=== PATIENT | female | born 1965 | race Caucasian/White ===

== ENCOUNTER 2025-01-26 21:36 | Emergency (ER) | payer SELFPAY ==
--- OUTSIDE RECORDS SUMMARY | 2025-01-26 21:39 | XMS REPORT | Continuity of Care Document ---
Author Name Unknown Address [address] [facility]. [address] [place] [address] [facility] Address [address] [facility] [address] [place] [address] Care Team Providers Care American Board Certified Orthotist Name Role Phone Pcp, Patient Does Not Have A Primary Care Physic joy No, PCP Attending Clinician Unavailable MYRIAM VAUGHN Attending Clinician Unavailable MYRIAM VAUGHN Attending Clinician Unavailable LISHA COOK Attending Clinician Unavailable Lisha Cook DNP Attending Clinician [phone] Myriam Vaughn MD Attending Clinician [phone] SWETHA EDWARDS Attending Clinician Unavailable Doctor Unassigned, [place] Attending Clinician U navailable Swetha Ibarra Attending Clinician [phone], [facility] Attending Clinician Unavailable Nancy Stephenson MA Attending Clinician Unava ilable GREGOR Attending Clinician Unavailable Mike Mayes Attending Clinician [phone] FELECIA CHAMBERS Attending Clinician Unavailable Nurse, [facility] Attending Clinician Un available Felecia Chambers MD Attending Clinician [phone] Rocio Attending Clinician Unavailable Uche Santiago RN Attending Clinician UnavailLENY Sanchez Attending Clinician Unavailable Green CUSHION BUILDER, Leny Attending Clinician [phone] Alek Milligan MD Attending Clinician [phone] Lab, Ang - Db Attending Clinician Unavailable ALEK MILLIGAN Attending Clinician Unavaila ble Pob, [facility] Main Attending Clinician Unavailabl e Lab, [facility] Fam Pob I Attending Clinician Unavailab sharon Amanuel Robert GARNER Attending Clinician MYRIAM VAUGHN Admitting Clinician Unavailable GREGOR Admitting Clinician Unavailable Rocio Admitting Clinician Unavailable Payers Payer Name Policy Type Policy Number Effective Date Expirati on Date Source [place] [id number] 2020 00:00:00 [employer] TRS CARE [id number] 2019 00:00:00 2021 00:00:00 Problems Condition Name Condition Details Condition Category Status Onset Date Resolution Date Last Treatment Date Treating Clinician Comments Source New onset of headaches New onset of headaches Disease Active 9-16 00:00: 00 [facility] Microscopi c hematuria Microscopi c hematuria Disease Active 8-11 00:00: 00 [facility] Hyperchole sterolemia Hyperchole sterolemia Disease Active 8-11 00:00: 00 [facility] H/O partial thyroidect abel H/O partial thyroidect abel Disease Active 8-03 00:00: 00 Overview: Formattin g of this note might be different from the original. 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 Disease Active [facility] Adenomatou s polyp of colon Adenomatou s polyp of colon Disease Active [facility] Postmenopa usal bleeding Postmenopa usal bleeding Disease Resolve d 7-24 00:00: 00 2023-04-22 00:00:00 2023-04-22 09:14:47 [facility] Allergies, Adverse Reactions, Alerts Allergy Name Allergy Type Status Severity Reaction(s) Onset Date Inactive Date Treating Clinician Comments Source NO KNOWN ALLERGIE S Drug Class Active [facility] Social History Social Habit Start Date Stop Date Quantity Comments Source [facility] of Social function 2024-07-30 00:00:00 2024-07-30 00:00:00 [facility] Alcoholic beverage intake 2024-07-30 00:00:00 2024-07-30 00:00:00 Ex-drinker (finding) [facility] Tobacco use and exposure 2023-04-22 00:00:00 2023-04-22 00:00:00 Smokeless tobacco non-user [facility] Exposure to SARS-CoV-2 (event) 2023-04-10 00:00:00 2023-04-20 13:10:00 Not sure [facility] Alcohol intake 2021-04-08 00:00:00 2021-04-08 00:00:00 Ex-drinker (finding) [facility] Sex assigned at 1965 00:00:00 1965 00:00:00 [facility] Smoking Status Start Date Stop Date Source Never smoked tobacco [facility] Medications Ordered Medication Name Filled Medication Name Start Date Stop Date Current Medication? Ordering Clinician Indication Dosage Frequency Signature (SIG) Comments Components Source nystatin-tr iamcinolone cream 2023-10 2- 00:00: 00 Yes Apply to area(s) 2 (two) times daily. [facility] THYROID ORAL 2023-10 0-14 09:07: 24 Yes Take by mouth. [facility] MULTIVITAMI N ORAL 04-22 08:52: 31 Yes Take by mouth. [facility] B12 1ml IM Q week B12 1ml IM Q week 05-11 00:00: 00 No B12 1ml IM Q week [facility] B12 1ml IM Q week B12 1ml IM Q week 05-11 00:00: 00 No B12 1ml IM Q week [facility] B12 1ml IM Q week B12 1ml IM Q week 05-11 00:00: 00 No B12 1ml IM Q week [facility] B12 1ml IM Q week B12 1ml IM Q week 05-11 00:00: 00 No B12 1ml IM Q week [facility] MULTIVITAMI N ORAL 04-13 10:06: 00 Yes Take by mouth. [facility] Nitrofurant oin&Nit. Macrocryst 100 mg capsule 04-13 00:00: 00 04-22 00:00 :00 No [id number] 100mg Take 1 capsule by mouth 2 (two) times daily. [facility] Xeomin 100 unit intramuscul ar solution Inject 46 units by intramuscul ar route. Xeomin 100 unit intramuscul ar solution Inject 46 units by intramuscul ar route. No 46unit( s) Xeomin 100 unit intramuscu lar solution Inject 46 units by intramuscu lar route. [facility] ibuprofen 800 mg tablet ibuprofen 800 mg tablet No ibuprofen 800 mg tablet [facility] oseltamivir 75 mg capsule TAKE 1 CAPSULE BY MOUTH TWICE A DAY FOR 5 DAYS oseltamivir 75 mg capsule TAKE 1 CAPSULE BY MOUTH TWICE A DAY FOR 5 DAYS No oseltamivi r 75 mg capsule TAKE 1 CAPSULE BY MOUTH TWICE A DAY FOR 5 DAYS [facility] phenazopyri dine 200 mg tablet Take 1 tablet 3 times a day by oral route for 2 days. phenazopyri dine 200 mg tablet Take 1 tablet 3 times a day by oral route for 2 days. No 1 TID phenazopyr idine 200 mg tablet Take 1 tablet 3 times a day by oral route for 2 days. [facility] tobramycin 0.3 %-dexametha sone 0.1 % eye drops,suspe nsion INSTILL 1 DROP IN RIGHT EYE FOUR TIMES A DAY SHAKE WELL tobramycin 0.3 %-dexametha sone 0.1 % eye drops,suspe nsion INSTILL 1 DROP IN RIGHT EYE FOUR TIMES A DAY SHAKE WELL No tobramycin 0.3 %-dexameth asone 0.1 % eye drops,susp ension INSTILL 1 DROP IN RIGHT EYE FOUR TIMES A DAY SHAKE WELL [facility] ibuprofen 800 mg tablet ibuprofen 800 mg tablet No ibuprofen 800 mg tablet [facility] nitrofurant oin monohydrate /macrocryst als 100 mg capsule TAKE 1 CAPSULE BY MOUTH TWICE A DAY nitrofurant oin monohydrate /macrocryst als 100 mg capsule TAKE 1 CAPSULE BY MOUTH TWICE A DAY No nitrofuran toin monohydrat e/macrocry stals 100 mg capsule TAKE 1 CAPSULE BY MOUTH TWICE A DAY [facility] oseltamivir 75 mg capsule TAKE 1 CAPSULE BY MOUTH TWICE A DAY FOR 5 DAYS oseltamivir 75 mg capsule TAKE 1 CAPSULE BY MOUTH TWICE A DAY FOR 5 DAYS No oseltamivi r 75 mg capsule TAKE 1 CAPSULE BY MOUTH TWICE A DAY FOR 5 DAYS [facility] phenazopyri dine 200 mg tablet Take 1 tablet 3 times a day by oral route for 2 days. phenazopyri dine 200 mg tablet Take 1 tablet 3 times a day by oral route for 2 days. No 1 TID phenazopyr idine 200 mg tablet Take 1 tablet 3 times a day by oral route for 2 days. [facility] tobramycin 0.3 %-dexametha sone 0.1 % eye drops,suspe nsion INSTILL 1 DROP IN RIGHT EYE FOUR TIMES A DAY SHAKE WELL tobramycin 0.3 %-dexametha sone 0.1 % eye drops,suspe nsion INSTILL 1 DROP IN RIGHT EYE FOUR TIMES A DAY SHAKE WELL No tobramycin 0.3 %-dexameth asone 0.1 % eye drops,susp ension INSTILL 1 DROP IN RIGHT EYE FOUR TIMES A DAY SHAKE WELL [facility] Xeomin 100 unit intramuscul ar solution Inject 47 units by intramuscul ar route. Xeomin 100 unit intramuscul ar solution Inject 47 units by intramuscul ar route. No 47unit( s) Xeomin 100 unit intramuscu lar solution Inject 47 units by intramuscu lar route. [facility] ibuprofen 800 mg tablet ibuprofen 800 mg tablet No ibuprofen 800 mg tablet [facility] nitrofurant oin monohydrate /macrocryst als 100 mg capsule TAKE 1 CAPSULE BY MOUTH TWICE A DAY nitrofurant oin monohydrate /macrocryst als 100 mg capsule TAKE 1 CAPSULE BY MOUTH TWICE A DAY No nitrofuran toin monohydrat e/macrocry stals 100 mg capsule TAKE 1 CAPSULE BY MOUTH TWICE A DAY [facility] oseltamivir 75 mg capsule TAKE 1 CAPSULE BY MOUTH TWICE A DAY FOR 5 DAYS oseltamivir 75 mg capsule TAKE 1 CAPSULE BY MOUTH TWICE A DAY FOR 5 DAYS No oseltamivi r 75 mg capsule TAKE 1 CAPSULE BY MOUTH TWICE A DAY FOR 5 DAYS [facility] phenazopyri dine 200 mg tablet Take 1 tablet 3 times a day by oral route for 2 days. phenazopyri dine 200 mg tablet Take 1 tablet 3 times a day by oral route for 2 days. No 1 TID phenazopyr idine 200 mg tablet Take 1 tablet 3 times a day by oral route for 2 days. [facility] tobramycin 0.3 %-dexametha sone 0.1 % eye drops,suspe nsion INSTILL 1 DROP IN RIGHT EYE FOUR TIMES A DAY SHAKE WELL tobramycin 0.3 %-dexametha sone 0.1 % eye drops,suspe nsion INSTILL 1 DROP IN RIGHT EYE FOUR TIMES A DAY SHAKE WELL No tobramycin 0.3 %-dexameth asone 0.1 % eye drops,susp ension INSTILL 1 DROP IN RIGHT EYE FOUR TIMES A DAY SHAKE WELL [facility] Xeomin 100 unit intramuscul ar solution Inject 47 units by intramuscul ar route. Xeomin 100 unit intramuscul ar solution Inject 47 units by intramuscul ar route. No 47unit( s) Xeomin 100 unit intramuscu lar solution Inject 47 units by intramuscu lar route. [facility] ibuprofen 800 mg tablet ibuprofen 800 mg tablet No ibuprofen 800 mg tablet [facility] nitrofurant oin monohydrate /macrocryst als 100 mg capsule TAKE 1 CAPSULE BY MOUTH TWICE A DAY nitrofurant oin monohydrate /macrocryst als 100 mg capsule TAKE 1 CAPSULE BY MOUTH TWICE A DAY No nitrofuran toin monohydrat e/macrocry stals 100 mg capsule TAKE 1 CAPSULE BY MOUTH TWICE A DAY [facility] oseltamivir 75 mg capsule TAKE 1 CAPSULE BY MOUTH TWICE A DAY FOR 5 DAYS oseltamivir 75 mg capsule TAKE 1 CAPSULE BY MOUTH TWICE A DAY FOR 5 DAYS No oseltamivi r 75 mg capsule TAKE 1 CAPSULE BY MOUTH TWICE A DAY FOR 5 DAYS [facility] phenazopyri dine 200 mg tablet Take 1 tablet 3 times a day by oral route for 2 days. phenazopyri dine 200 mg tablet Take 1 tablet 3 times a day by oral route for 2 days. No 1 TID phenazopyr idine 200 mg tablet Take 1 tablet 3 times a day by oral route for 2 days. [facility] tobramycin 0.3 %-dexametha sone 0.1 % eye drops,suspe nsion INSTILL 1 DROP IN RIGHT EYE FOUR TIMES A DAY SHAKE WELL tobramycin 0.3 %-dexametha sone 0.1 % eye drops,suspe nsion INSTILL 1 DROP IN RIGHT EYE FOUR TIMES A DAY SHAKE WELL No tobramycin 0.3 %-dexameth asone 0.1 % eye drops,susp ension INSTILL 1 DROP IN RIGHT EYE FOUR TIMES A DAY SHAKE WELL [facility] Xeomin 100 unit intramuscul ar solution Inject 47 units by intramuscul ar route. Xeomin 100 unit intramuscul ar solution Inject 47 units by intramuscul ar route. No 47unit( s) Xeomin 100 unit intramuscu lar solution Inject 47 units by intramuscu lar route. [facility] Macrobid 100 mg capsule Take 1 capsule every 12 hours by oral route for 5 days. Macrobid 100 mg capsule Take 1 capsule every 12 hours by oral route for 5 days. No 1capsul e(s) Q12H Macrobid 100 mg capsule Take 1 capsule every 12 hours by oral route for 5 days. [facility] ibuprofen 800 mg tablet TAKE 1 TABLET BY MOUTH EVERY 8 HOURS NEEDED ibuprofen 800 mg tablet TAKE 1 TABLET BY MOUTH EVERY 8 HOURS NEEDED No ibuprofen 800 mg tablet TAKE 1 TABLET BY MOUTH EVERY 8 HOURS [facility] Medrol (Fernando) 4 mg tablets in a dose pack Take as directed Medrol (Fernando) 4 mg tablets in a dose pack Take as directed No Medrol (Fernando) 4 mg tablets in a dose pack Take as directed [facility] Immunizations Ordered Immunization Name Filled Immunization Name Date Status Comments Source Influenza Virus Vaccine Quad .5 mL IM 6+ MO (FLUZONE/FLULAVAL/F LUARIX) 2024-06-17 00:00:00 Completed SARS-COV-2 COVID-19 VACCINE, BIVALENT (MODERNA BOOSTER) 2022-08-01 00:00:00 Completed Influenza Virus Vaccine Quad IM, Preserv and ABX Free 6 MO-64 YRS (FLUCELVAX) 2022-07-03 00:00:00 Completed Influenza Virus Vaccine 2021-06-20 00:00:00 Completed Influenza Virus Vaccine Quad .5 mL IM 6+ MO (FLUZONE/FLULAVAL/F LUARIX) 2021-06-19 00:00:00 Completed Zoster Vaccine Recombinant 2021-05-17 00:00:00 Completed [facility] Zoster Vaccine Recombinant 2021-05-17 00:00:00 Completed [facility] Zoster Vaccine Recombinant 2021-05-17 00:00:00 Completed [facility] Zoster Vaccine Recombinant 2021-05-17 00:00:00 Completed [facility] Zoster Vaccine Recombinant 2021-05-17 00:00:00 Completed [facility] Zoster Vaccine Recombinant 2021-05-17 00:00:00 Completed [facility] Zoster Vaccine Recombinant 2021-05-17 00:00:00 Completed [facility] Zoster Vaccine Recombinant 2021-05-17 00:00:00 Completed [facility] Zoster Vaccine Recombinant 2021-03-17 00:00:00 Completed [facility] Zoster Vaccine Recombinant 2021-03-17 00:00:00 Completed [facility] Zoster Vaccine Recombinant 2021-03-17 00:00:00 Completed [facility] Zoster Vaccine Recombinant 2021-03-17 00:00:00 Completed [facility] Zoster Vaccine Recombinant 2021-03-17 00:00:00 Completed [facility] Zoster Vaccine Recombinant 2021-03-17 00:00:00 Completed [facility] Zoster Vaccine Recombinant 2021-03-17 00:00:00 Completed [facility] Zoster Vaccine Recombinant 2021-03-17 00:00:00 Completed [facility] SARS-COV-2 COVID-19 MODERNA VACCINE 2020-11-20 00:00:00 Completed [facility] SARS-COV-2 COVID-19 MODERNA 12+ YRS VACCINE 2020-11-20 00:00:00 Completed [facility] SARS-COV-2 COVID-19 MODERNA 12+ YRS VACCINE 2020-11-20 00:00:00 Completed [facility] SARS-COV-2 COVID-19 MODERNA 12+ YRS VACCINE 2020-11-20 00:00:00 Completed [facility] SARS-COV-2 COVID-19 MODERNA 12+ YRS VACCINE 2020-11-20 00:00:00 Completed [facility] SARS-COV-2 COVID-19 MODERNA 12+ YRS VACCINE 2020-11-20 00:00:00 Completed [facility] SARS-COV-2 COVID-19 MODERNA 12+ YRS VACCINE 2020-11-20 00:00:00 Completed [facility] SARS-COV-2 COVID-19 MODERNA 12+ YRS VACCINE 2020-11-20 00:00:00 Completed SARS-COV-2 COVID-19 MODERNA VACCINE 2020-10-23 00:00:00 Completed [facility] SARS-COV-2 COVID-19 MODERNA 12+ YRS VACCINE 2020-10-23 00:00:00 Completed [facility] SARS-COV-2 COVID-19 MODERNA 12+ YRS VACCINE 2020-10-23 00:00:00 Completed [facility] SARS-COV-2 COVID-19 MODERNA 12+ YRS VACCINE 2020-10-23 00:00:00 Completed [facility] SARS-COV-2 COVID-19 MODERNA 12+ YRS VACCINE 2020-10-23 00:00:00 Completed [facility] SARS-COV-2 COVID-19 MODERNA 12+ YRS VACCINE 2020-10-23 00:00:00 Completed [facility] SARS-COV-2 COVID-19 MODERNA 12+ YRS VACCINE 2020-10-23 00:00:00 Completed [facility] SARS-COV-2 COVID-19 MODERNA 12+ YRS VACCINE 2020-10-23 00:00:00 Completed Zoster Vaccine Recombinant 2020-07-30 00:00:00 Completed [facility] Zoster Vaccine Recombinant 2020-05-20 00:00:00 Completed TDAP 2020-02-25 00:00:00 Completed [facility] TDAP 2020-02-25 00:00:00 Completed [facility] TDAP 2020-02-25 00:00:00 Completed [facility] TDAP 2020-02-25 00:00:00 Completed [facility] TDAP 2020-02-25 00:00:00 Completed [facility] TDAP 2020-02-25 00:00:00 Completed [facility] TDAP 2020-02-25 00:00:00 Completed [facility] TDAP 2020-02-25 00:00:00 Completed TDAP Unknown Completed [facility] Zoster Vaccine Recombinant Unknown Completed [facility] SARS-COV-2 COVID-19 MODERNA 12+ YRS VACCINE Unknown Completed [facility] TDAP Unknown Completed [facility] Zoster Vaccine Recombinant Unknown Completed [facility] SARS-COV-2 COVID-19 MODERNA 12+ YRS VACCINE Unknown Completed [facility] TDAP Unknown Completed [facility] Zoster Vaccine Recombinant Unknown Completed [facility] SARS-COV-2 COVID-19 MODERNA 12+ YRS VACCINE Unknown Completed [facility] Vital Signs Vital Name Observation Time Observation Value Comments S ource Systolic blood pressure 2024-07-30 14:06:00 121 mm[Hg] [facility] Diastolic blood pressure 2024-07-30 14:06:00 78 mm[Hg] [facility] Heart rate 2024-07-30 14:06:00 70 /[facility] 2024-07-30 14:06:00 18 /min [facility] Body height 2024-07-30 14:06:00 170.2 cm [facility] Body weight 2024-07-30 14:06:00 67.132 kg [facility] BMI 2024-07-30 14:06:00 23.18 kg/m2 [facility] Systolic blood pressure 2023-04-26 18:50:00 112 mm[Hg] [facility] Diastolic blood pressure 2023-04-26 18:50:00 72 mm[Hg] [facility] Heart rate 2023-04-26 18:50:00 61 /min [facility] Respiratory rate 2023-04-26 18:50:00 18 /min [facility] Body height 2023-04-26 18:50:00 170.2 cm [facility] Body weight 2023-04-26 18:50:00 73.165 kg [facility] BMI 2023-04-26 18:50:00 25.26 kg/m2 [facility] Oxygen saturation in Arterial blood by Pulse oximetry 2023-04-26 18:50:00 97 /min [facility] Systolic blood pressure 2023-04-22 13:43:00 112 mm[Hg] [facility] Diastolic blood pressure 2023-04-22 13:43:00 76 mm[Hg] [facility] Heart rate 2023-04-22 13:43:00 57 /min [facility] Body temperature 2023-04-22 13:43:00 36.78 La [facility] Respiratory rate 2023-04-22 13:43:00 18 /min [facility] Body height 2023-04-22 13:43:00 170.2 cm [facility] Body weight 2023-04-22 13:43:00 71.668 kg [facility] BMI 2023-04-22 13:43:00 24.75 kg/m2 [facility] BP Diastolic 2022-07-06 00:00:00 68 mm[Hg] [facility] Height 2022-07-06 00:00:00 67 [in_i] [facility] BMI (Body Mass Index) 2022-07-06 00:00:00 23.6 kg/m2 [facility] BP Systolic 2022-07-06 00:00:00 112 mm[Hg] [facility] Body Weight 2022-07-06 00:00:00 2416 [oz_av] [facility] BP Diastolic 2022-06-29 00:00:00 70 mm[Hg] [facility] Height 2022-06-29 00:00:00 67 [in_i] [facility] BMI (Body Mass Index) 2022-06-29 00:00:00 23.5 kg/m2 [facility] BP Systolic 2022-06-29 00:00:00 107 mm[Hg] [facility] Body Weight 2022-06-29 00:00:00 2400 [oz_av] [facility] BP Diastolic 2022-06-22 00:00:00 70 mm[Hg] [facility] Height 2022-06-22 00:00:00 67 [in_i] [facility] BMI (Body Mass Index) 2022-06-22 00:00:00 23.5 kg/m2 [facility] BP Systolic 2022-06-22 00:00:00 124 mm[Hg] [facility] Body Weight 2022-06-22 00:00:00 2400 [oz_av] [facility] BP Diastolic 2022-06-15 00:00:00 63 mm[Hg] [facility] Height 2022-06-15 00:00:00 67 [in_i] [facility] BMI (Body Mass Index) 2022-06-15 00:00:00 23.3 kg/m2 [facility] BP Systolic 2022-06-15 00:00:00 108 mm[Hg] [facility] Body Weight 2022-06-15 00:00:00 2384 [oz_av] [facility] BP Diastolic 2022-06-08 00:00:00 68 mm[Hg] [facility] Height 2022-06-08 00:00:00 67 [in_i] [facility] BMI (Body Mass Index) 2022-06-08 00:00:00 23.2 kg/m2 [facility] BP Systolic 2022-06-08 00:00:00 122 mm[Hg] [facility] Body Weight 2022-06-08 00:00:00 2368 [oz_av] [facility] BP Diastolic 2022-06-01 00:00:00 72 mm[Hg] [facility] Height 2022-06-01 00:00:00 67 [in_i] [facility] BMI (Body Mass Index) 2022-06-01 00:00:00 23.3 kg/m2 [facility] BP Systolic 2022-06-01 00:00:00 120 mm[Hg] [facility] Body Weight 2022-06-01 00:00:00 2384 [oz_av] [facility] BP Diastolic 2022-05-25 00:00:00 69 mm[Hg] [facility] Height 2022-05-25 00:00:00 67 [in_i] [facility] BMI (Body Mass Index) 2022-05-25 00:00:00 23.5 kg/m2 [facility] BP Systolic 2022-05-25 00:00:00 106 mm[Hg] [facility] Body Weight 2022-05-25 00:00:00 2400 [oz_av] [facility] BP Diastolic 2022-05-18 00:00:00 68 mm[Hg] [facility] Height 2022-05-18 00:00:00 67 [in_i] [facility] BMI (Body Mass Index) 2022-05-18 00:00:00 23.5 kg/m2 [facility] BP Systolic 2022-05-18 00:00:00 115 mm[Hg] [facility] Body Weight 2022-05-18 00:00:00 2400 [oz_av] [facility] Systolic blood pressure 2022-05-12 13:57:00 134 mm[Hg] [facility] Diastolic blood pressure 2022-05-12 13:57:00 84 mm[Hg] [facility] Heart rate 2022-05-12 13:57:00 52 /min [facility] Body temperature 2022-05-12 13:57:00 36.67 La [facility] Respiratory rate 2022-05-12 13:57:00 16 /min [facility] Body height 2022-05-12 13:57:00 170.2 cm [facility] Body weight 2022-05-12 13:57:00 67.586 kg [facility] BMI 2022-05-12 13:57:00 23.34 kg/m2 [facility] Height 2022-05-11 00:00:00 67 [in_i] [facility] BP Diastolic 2022-02-09 00:00:00 83 mm[Hg] [facility] Height 2022-02-09 00:00:00 67 [in_i] [facility] BMI (Body Mass Index) 2022-02-09 00:00:00 23.3 kg/m2 [facility] BP Systolic 2022-02-09 00:00:00 122 mm[Hg] [facility] Body Weight 2022-02-09 00:00:00 149 [lb_av] [facility] BP Diastolic 2022-01-26 00:00:00 83 mm[Hg] [facility] Height 2022-01-26 00:00:00 67 [in_i] [facility] BMI (Body Mass Index) 2022-01-26 00:00:00 23.3 kg/m2 [facility] BP Systolic 2022-01-26 00:00:00 122 mm[Hg] [facility] Body Weight 2022-01-26 00:00:00 149 [lb_av] [facility] BP Diastolic 2021-06-18 00:00:00 75 mm[Hg] [facility] Height 2021-06-18 00:00:00 67 [in_i] [facility] BMI (Body Mass Index) 2021-06-18 00:00:00 22.9 kg/m2 [place] [facility] BP Systolic 2021-06-18 00:00:00 118 mm[Hg] [facility] Body Weight 2021-06-18 00:00:00 2336 [oz_av] [facility] Procedures Procedure Date / Time Performed Performing Clinicia n Source ASSIGNMENT OF BENEFITS 2023-05-20 14:59:08 Docto r Unassigned, [place] [facility] PAP SMEAR-LIQUID BASED-CP 2023-04-22 14:11:00 AdMyriam cool [facility] POCT URINALYSIS W/O SPECIFIC GRAVITY 2022-05-12 14:04:00 Myriam Vaughn [facility] unlisted imaging order 2022-01-26 00:00:00 [facility] Plan of Care Planned Activity Planned Date Details Comments Source Diagnostic Test Pending 2021-06-18 00:00:00 urinalysis, dipstick [code = urinalysis, dipstick] [facility] Encounters Start Date/Time End Date/Time Encounter Type Admission Type Attending Clinicians Care Facility Care Department Encounter ID Source 2024-11-27 13:45:02 Outpatient No, PCP CLS CLS [id number] [facility] 2024-09-26 00:00:00 2024-10-27 18:16:07 Patient Secure Lisha Kern [facility] 1..840.114 350.1.13.10 4.2.7.2.686 [id number] [facility] 2024-07-30 11:47:13 2024-07-30 23:59:00 Outpatient R MYRIAM VAUGHN VIVIAN [facility] [id number] [facility] 2024-07-30 11:47:13 2024-07-30 23:59:00 Hospital Encounter Myriam Vaughn [facility] 1..840.114 350.1.13.10 4.2.7.2.686 [id number] [facility] 2024-07-30 09:00:00 2024-07-30 09:25:20 Office Visit Ann Lisha [facility] 1..114 350.1.13.10 4.2.7.2.686 [id number] [facility] 2024-05-09 13:00:00 2024-05-09 13:00:00 Outpatient R MYRIAM VAUGHN VIVIAN [facility] [id number] [facility] 2023-10-21 08:30:00 2023-10-21 08:30:00 Outpatient R SWETHA EDWARDS [facility] [id number] [facility] 2023-05-20 10:00:09 2023-05-20 23:59:00 Outpatient MYRIAM MCKEON [facility] [id number] [facility] 2023-05-20 10:00:09 2023-05-20 23:59:00 Hospital Encounter Myriam Vaughn [facility] 1..114 350.1.13.10 4.2.7.2.686 [id number] [facility] 2023-05-20 00:00:00 2023-05-20 00:00:00 Orders Only Doctor Unassigned, [place] [facility] 1.2.114 350.1.13.10 4.2.7.2.686 [id number] [facility] 2023-04-26 14:00:00 2023-04-26 14:19:07 Outpatient R SWETHA EDWARDS [facility] [id number] [facility] 2023-04-26 14:00:00 2023-04-26 14:19:07 [facility] 1.284.114 350.1.13.10 4.2.7.2.686 [id number] [facility] 2023-04-22 09:30:00 2023-04-22 09:37:05 Case Manager Specialist Visit 2, Adc Lab Adum, [facility] 1.2.840.114 350.1.13.10 4.2.7.2.686 [id number] [facility] 2023-04-22 08:30:00 2023-04-22 09:19:16 Outpatient R ADUM, [facility] [id number] [facility] 2023-04-22 08:30:00 2023-04-22 09:19:16 Office Visit Adum, [facility] 1.2.840.114 350.1.13.10 4.2.7.2.686 [id number] [facility] 2023-04-15 08:00:00 2023-04-15 08:00:00 Outpatient R ADUM, [facility] [id number] [facility] 2022-11-05 00:00:00 2022-11-05 00:00:00 Case Management Nancy Stephenson [facility] 1.2.840.114 350.1.13.10 4.2.7.2.686 [id number] [facility] 2022-09-28 00:00:00 2022-09-28 00:00:00 Outpatient GREGOR [facility] [id number] [facility] 2022-09-28 00:00:00 2022-09-28 00:00:00 Mike Mayes, MSN, BLASTING CONTRACT MINER, CUSHION BUILDER-C: [address], [address], [place] [address] , Ph. [facility], Mike Mayes, MSN, CUSHION BUILDER-C [id number] [place] [facility] 2022-07-06 00:00:00 2022-07-06 00:00:00 Outpatient ANGELICASON_C [facility] [id number] [place] [facility] 2022-07-06 00:00:00 2022-07-06 00:00:00 Mike Mayes, MSN, BLASTING CONTRACT MINER, CUSHION BUILDER-C: [address], [place] [address] , Ph. [facility], Mike Mayes, MSN, CUSHION BUILDER-C [id number] [facility] 2022-06-29 00:00:00 2022-06-29 00:00:00 Outpatient GERBER_C [facility] [id number] [facility] 2022-06-29 00:00:00 2022-06-29 00:00:00 Outpatient Mike Mayes [facility] [id number] 2022-06-29 00:00:00 2022-06-29 00:00:00 LEA Stuart, BLASTING CONTRACT MINER, CUSHION BUILDER-C: [address], [address], [place] [address] , Ph. [facility], Mike Mayes, MSN, CUSHION BUILDER-C [id number] [place] [facility] 2022-06-22 00:00:00 2022-06-22 00:00:00 Outpatient GERBER_Maura [facility] [id number] [place] [facility] 2022-06-22 00:00:00 2022-06-22 00:00:00 Outpatient Mike Mayes [facility] [id number] 2022-06-22 00:00:00 2022-06-22 00:00:00 Mike Mayes, MSN, BLASTING CONTRACT MINER, CUSHION BUILDER-C: [address], [address], [place] [address] , Ph. [facility], Mike Mayes, MSN, CUSHION BUILDER-C [id number] [facility] 2022-06-15 00:00:00 2022-06-15 00:00:00 Outpatient SISSON_C [facility] 30 [facility] 2022-06-15 00:00:00 2022-06-15 00:00:00 Outpatient Mike Mayes [facility] [id number] 2022-06-15 00:00:00 2022-06-15 00:00:00 LEA Stuart, BLASTING CONTRACT MINER, CUSHION BUILDER-C: [address], [address], [place] [address] , Ph. [facility], LEA Stuart, CUSHION BUILDER-C [id number] [facility] 2022-06-08 00:00:00 2022-06-08 00:00:00 Outpatient SISSON_C [facility] 23 [facility] 2022-06-08 00:00:00 2022-06-08 00:00:00 Outpatient Mike Mayes [facility] [id number] 2022-06-08 00:00:00 2022-06-08 00:00:00 Mike Mayes MSN, BLASTING CONTRACT MINER, CUSHION BUILDER-C: [address], [address], [place] [address] , Ph. [facility], Mike Mayes, MSN, CUSHION BUILDER-C [id number] [facility] 2022-06-01 00:00:00 2022-06-01 00:00:00 Outpatient SISSON_C [facility] 16 [facility] 2022-06-01 00:00:00 2022-06-01 00:00:00 Mike Mayes, MSN, BLASTING CONTRACT MINER, CUSHION BUILDER-C: [address] [facility] [address], [address], [place] [address] , Ph. [facility], Mike Mayes, MSN, CUSHION BUILDER-C [id number] [facility] 2022-06-01 00:00:00 2022-06-01 00:00:00 Outpatient Mike Mayes [facility] [id number] 2022-05-25 00:00:00 2022-05-25 00:00:00 Outpatient SISSON_C [facility] 09 [facility] 2022-05-25 00:00:00 2022-05-25 00:00:00 Mike Mayes, MSN, BLASTING CONTRACT MINER, CUSHION BUILDER-C: [address], [address], [place] [address] , Ph. [facility], Mike Mayes, MSN, CUSHION BUILDER-C [id number] [facility] 2022-05-25 00:00:00 2022-05-25 00:00:00 Outpatient Mike Mayes [facility] [id number] 2022-05-18 00:00:00 2022-05-18 00:00:00 Outpatient SISSON_C [facility] [id number] [facility] 2022-05-18 00:00:00 2022-05-18 00:00:00 Mike Mayes, MSN, BLASTING CONTRACT MINER, CUSHION BUILDER-C: [address], [address], [place] [address] , Ph. [facility], Mike Mayes, MSN, CUSHION BUILDER-C [id number] [facility] 2022-05-18 00:00:00 2022-05-18 00:00:00 Outpatient Ian Mayesney [facility] [id number] 2022-05-14 08:00:00 2022-05-14 08:00:00 Outpatient FELECIA RAMIREZ [facility] [id number] [facility] 2022-05-12 09:00:00 2022-05-12 09:36:18 Nurse Visit Nurse, [facility] Felecia Chambers [facility] 1.2.840.114 350.1.13.10 4.2.7.2.686 [id number] [facility] 2022-05-12 09:00:00 2022-05-12 09:36:18 Outpatient FELECIA RAMIREZ [facility] [id number] [facility] 2022-05-12 09:00:00 2022-05-12 09:00:00 Outpatient FELECIA RAMIREZ [facility] [id number] [facility] 2022-05-12 00:00:00 2022-05-12 00:00:00 Outpatient SISSON_C [facility] [id number] [facility] 2022-05-11 10:28:00 2022-05-11 10:28:00 Outpatient GERBER_C [facility] [id number] [facility] 2022-05-11 00:00:00 2022-05-11 00:00:00 Mike Mayes, MSN, BLASTING CONTRACT MINER, CUSHION BUILDER-C: [address], [address], [address], [place] [address] , Ph. [facility], Mike Mayes, MSN, CUSHION BUILDER-C [id number] [facility] 2022-05-11 00:00:00 2022-05-11 00:00:00 Outpatient GerberNikkiMike [facility] [id number] 2022-05-07 08:52:00 2022-05-07 23:59:00 Outpatient MYRIAM MCKEON [facility] [id number] [facility] 2022-05-07 08:52:00 2022-05-07 23:59:00 Hospital Encounter Adtravon Myriam Kimberly [facility] 1..840.114 350.1.13.10 4.2.7.2.686 [id number] [facility] 2022-05-07 00:00:00 2022-05-07 00:00:00 Orders Only Doctor Unassigned, [place] [facility] 1..840.114 350.1.13.10 4.2.7.2.686 [id number] [facility] 2022-05-03 00:00:00 2022-05-03 00:00:00 Outpatient Zay VAUGHN MYRIAM [facility] [id number] [facility] 2022-04-15 00:00:00 2022-04-15 00:00:00 Telephone Adtravon [facility] 1..840.114 350.1.13.10 4.2.7.2.686 [id number] [facility] 2022-04-13 10:00:00 2022-04-13 10:57:43 Outpatient MYRIAM MCKEON [facility] [id number] [facility] 2022-02-11 03:51:00 2022-02-11 03:51:00 Outpatient cMcDonald [facility] [id number] [facility] 2022-02-09 04:04:00 2022-02-09 04:04:00 Outpatient cMcDonald [facility] [id number] [facility] 2022-02-09 00:00:00 2022-02-09 00:00:00 Tucker Pack MD: [address] [address] , Ph. MM[facility] [id number] [facility] 2022-01-26 05:54:00 2022-01-26 05:54:00 Outpatient cMcDonald [facility] [id number] [facility] 2022-01-26 03:12:00 2022-01-26 03:12:00 Outpatient cMcDonald MM[facility] MMG [id number] [facility] 2022-01-26 00:00:00 2022-01-26 00:00:00 Tucker Pack MD: [address], [place] [address] , Ph. MM[facility] [id number] [facility] 2022-01-19 03:59:00 2022-01-19 03:59:00 Outpatient cMcDonald [id number] [facility] 2021-11-15 00:00:00 2021-11-15 00:00:00 Telephone Uche Santiago [facility] 1.2.840.114 350.1.13.10 4.2.7.2.686 [id number] [facility] 2021-11-14 10:00:00 2021-11-14 10:34:20 Outpatient R LENY PALMA [facility] [id number] [facility] 2021-11-14 10:00:00 2021-11-14 10:20:00 [facility] 1.2.840.114 350.1.13.10 4.2.7.2.686 [id number] [facility] 2021-11-10 05:32:00 2021-11-10 05:32:00 Outpatient GERBER_Maura [facility] [id number] [place] [facility] 2021-11-10 00:00:00 2021-11-10 00:00:00 Outpatient Mike Mayes [facility] [id number] 2021-11-10 00:00:00 2021-11-10 00:00:00 Mike Mayes, MSN, BLASTING CONTRACT MINER, CUSHION BUILDER-C: [address], [address], [place] [address] , Ph. [facility], Mike Mayes, MSN, CUSHION BUILDER-C [id number] [place] [facility] 2021-08-06 06:50:00 2021-08-06 06:50:00 Outpatient SISSON_C [facility] [id number] [place] [facility] 2021-08-04 05:06:00 2021-08-04 05:06:00 Outpatient SISSON_C [facility] [id number] [place] [facility] 2021-08-04 00:00:00 2021-08-04 00:00:00 Outpatient Mike Mayes [facility] [id number] 2021-08-04 00:00:00 2021-08-04 00:00:00 Mike Mayes, MSN, BLASTING CONTRACT MINER, CUSHION BUILDER-C: [address], [address], [place] [address] , Ph. [facility], Mike Mayes, MSN, CUSHION BUILDER-C [id number] [facility] 2021-07-18 07:21:00 2021-07-18 07:21:00 Outpatient GERBER_Maura [facility] [address] [place], [place] [address] [facility] 2021-07-06 00:00:00 2021-07-06 00:00:00 Patient Secure Msg Alek Milligan [facility] Navdeep?[facility] Medical Office Building 1.2.840.114 350.1.13.10 4.2.7.2.686 [id number] [facility] 2021-07-02 15:25:44 2021-07-02 23:59:00 Hospital Encounter Alek Milligan [facility] 1.2.840.114 350.1.13.10 4.2.7.2.686 [id number] [facility] 2021-07-02 14:12:05 2021-07-02 14:27:05 Case Manager Specialist Visit Lab, Ang - Db Alek Milligan [facility] Navdeep?[facility] Building 1.2.840.114 350.1.13.10 4.2.7.2.686 [id number] [facility] 2021-07-02 13:12:27 2021-07-02 14:11:15 Office Visit Alek Milligan [facility] Navdeep?[facility] Building 1.2840.114 350.1.13.10 4.2.7.2.686 [id number] [facility] 2021-07-02 13:15:00 2021-07-02 13:15:00 Outpatient R SRINIALEK JACOBSON [facility] [id number] [facility] 2021-06-18 02:32:00 2021-06-18 02:32:00 Outpatient GERBER_C [facility] [id number] [facility] 2021-06-18 00:00:00 2021-06-18 00:00:00 Outpatient Mike Mayes [facility] [id number] 2021-06-18 00:00:00 2021-06-18 00:00:00 Mike Mayes, MSN, BLASTING CONTRACT MINER, CUSHION BUILDER-C: [address], [address], [place] [address] , Ph. [facility], Mike Mayes, MSN, CUSHION BUILDER-C [id number] [facility] 2021-06-02 17:06:42 2021-06-02 23:59:00 Hospital Encounter Alek Milligan [facility] ..840.114 350.1.13.10 4.2.7.2.686 [id number] [facility] 2021-06-02 17:08:21 2021-06-02 17:23:21 Case Manager Specialist Visit Pob, Adc Lab Main Alek Milligan [facility] Professio [facility] 1..840.114 350.1.13.10 4.2.7.2.686 [id number] [facility] 2021-06-02 00:00:00 2021-06-02 00:00:00 Outpatient R SRINILUCA JACOBSONTANISHA [facility] [id number] [facility] 2021-06-02 00:00:00 2021-06-02 00:00:00 Orders Only Doctor Unassigned, [place] [facility] 1.2.840.114 350.1.13.10 4.2.7.2.686 [id number] [facility] 2021-06-01 00:00:00 2021-06-01 00:00:00 Patient Secure Msg Doctor Unassigned, [place] [facility] 1.2.840.114 350.1.13.10 4.2.7.2.686 [id number] [facility] 2021-05-27 00:00:00 2021-05-27 00:00:00 Case Management Alek Milligan [facility] Office Building One 1.0.114 350.1.13.10 4.2.7.2.686 [id number] [facility] 2021-05-22 00:00:00 2021-05-22 00:00:00 Patient Secure Msg Doctor Unassigned, [place] [facility] 1.2840.114 350.1.13.10 4.2.7.2.686 [id number] [facility] 2021-05-20 08:15:47 2021-05-20 09:35:33 Case Manager Specialist Visit Lab, Adc Fam Pob I Alek Milligan [facility] Office Building One .84.114 350.1.13.10 4.2.7.2.686 [id number] [facility] 2021-05-20 08:20:00 2021-05-20 08:20:00 Outpatient R ALEK MILLIGAN [facility] [id number] [facility] 2021-05-19 08:51:42 2021-05-19 09:51:38 Office Visit Alek Milligan [facility] Office Building One 1.84.114 350.1.13.10 4.2.7.2.686 [id number] [facility] 2021-05-19 09:00:00 2021-05-19 09:00:00 Outpatient R ALEK MILLIGAN [facility] [id number] [facility] 2021-04-22 12:04:51 2021-04-22 23:59:00 Hospital Encounter AdMyriam cool [facility] 1.840.114 350.1.13.10 4.2.7.2.686 [id number] [facility] 2021-04-22 00:00:00 2021-04-22 00:00:00 Outpatient R SUSANA [facility] [id number] [facility] 2021-04-22 00:00:00 2021-04-22 00:00:00 Orders Only Doctor Unassigned, [place] [facility] 1.840.114 350.1.13.10 4.2.7.2.686 [id number] [facility] 2021-04-10 00:00:00 2021-04-10 00:00:00 Patient Secure Msg Doctor Unassigned, [place] [facility] 1.20.114 350.1.13.10 4.2.7.2.686 [id number] [facility] 2021-04-08 14:53:08 2021-04-08 16:01:36 Office Visit Myriam Vaughn [facility] Building 1.20.114 350.1.13.10 4.2.7.2.686 [id number] [facility] 2021-04-08 15:00:00 2021-04-08 15:00:00 Outpatient R RUBENTRAVON [facility] [id number] [facility] 2021-03-20 00:00:00 2021-03-20 00:00:00 Telephone AdMyriam cool [facility] 1.284.114 350.1.13.10 4.2.7.2.686 [id number] [facility] 2021-01-06 00:00:00 2021-01-06 00:00:00 Patient Outreach Robert Vital [facility] 1.2.114 350.1.13.10 4.2.7.2.686 [id number] [facility] 2020-05-12 00:00:00 2020-05-12 00:00:00 Orders Only Doctor Unassigned, [place] [facility] 1.84.114 350.1.13.10 4.2.7.2.686 [id number] [facility] 2020-05-09 13:00:00 2020-05-09 13:00:00 Outpatient R ADMYRIAM COOL [facility] [id number] [facility] 2020-05-09 08:30:11 2020-05-09 09:00:11 Telemedici ne Visit RubenMyriam cool [facility] 1..840.114 350.1.13.10 4.2.7.2.686 [id number] [facility] 2020-05-09 08:00:00 2020-05-09 08:00:00 Outpatient R ADMYRIAM COOL [facility] [id number] [facility] 2020-04-29 00:00:00 2020-04-29 00:00:00 Case Management RubenMyriam cool [facility] 1.2.84.114 350.1.13.10 4.2.7.2.686 [id number] [facility] 2020-04-28 13:56:00 2020-04-28 23:59:00 Hospital Encounter AdMyriam cool [facility] 1.2.840.114 350.1.13.10 4.2.7.2.686 [id number] [facility] 2020-04-28 00:00:00 2020-04-28 00:00:00 Outpatient R MYRIAM [facility]AUGHN [facility] [id number] [facility] 2020-04-18 16:43:31 2020-04-18 16:58:31 Case Manager Specialist [facility] 1.2.840.114 350.1.13.10 4.2.7.2.686 [id number] [facility] 2020-04-18 15:04:11 2020-04-18 16:31:33 Office Visit Myriam Vaughn [facility] 1.2.840.114 350.1.13.10 4.2.7.2.686 [id number] [facility] 2020-04-18 15:00:00 2020-04-18 15:00:00 Outpatient R MYRIAM [facility]AUGHN [facility] [id number] [facility] 2020-04-18 00:00:00 2020-04-18 00:00:00 Orders Only Doctor Unassigned, [place] [facility] 1.2.840.114 350.1.13.10 4.2.7.2.686 [id number] [facility] Results Test Description Test Time Test Comments Results Result Co mments Source [facility]
[2025-01-26] MEDS ORDERED: IBUPROFEN 400 MG TAB ONE (22:03)
[2025-01-26] MEDS ORDERED: HYDROCODONE/APAP 5/325 MG TAB ONE (22:03)
--- NOTE | 2025-01-26 22:45 | RAD REPORT ---
EXAM: CT brain without contrast HISTORY: Headache COMPARISON: None TECHNIQUE: Multiple contiguous axial images were obtained and a CT of the brain without contrast.. Sagittal and coronal reconstruction performed. Automated exposure control, adjustment of the mA and/or kV according to patient size, and/or iterative reconstruction. Unless otherwise specified, incidental f indings do not require dedicated imaging follow-up FINDINGS: An intracranial bleed is not seen Ventricles are normal caliber No extra-axial fluid collection noted No significant hypodensity within the brain No fluid within the visualized sinuses or mastoids noted. IMPRESSION: No acute intracranial abnormality noted. If the patient continues to have symptoms to suggest an acute intracranial abnormality then MRI of th e brain would be recommended.
--- NOTE | 2025-01-26 23:17 | ER ---
Nurse's Notes [facility] Name: Poly Smith Age: 59 yrs Sex: Female : 1965 Arrival Date: 01/26/2025 Time: 21:36 Bed 13 Private MD: Diagnosis: Unspecified injury of head, initial encounter Presentation: 01/26 21:57 Chief complaint: Patient states: slipped in water and fell yesterday morning, hitting me1 the right side of her head on the concrete wall. c/o headache 8/10 at this time and reports some numbness to the right side of her head at times. Coronavirus screen: Vaccine status: Patient reports receiving the 2nd dose of the covid vaccine. Ebola Screen: No symptoms or risks identified at this time. Mechanism of Injury: resulted from a fall. Initial Sepsis Screen: Does the patient meet any 2 criteria? No. Patient's initial sepsis screen is negative. Does the patient have a suspected source of infection? No. Patient's initial sepsis screen is negative. Risk Assessment: Do you want to hurt yourself or someone else? Patient reports no desire to harm self or others. Onset of symptoms was January 25, 2025. 21:57 Method Of Arrival: Ambulatory me1 21:57 Acuity: NAKIA 3 me1 Historical: - Allergies: 21:59 No Known Allergies; me1 - Home Meds: 21:59 None [Active]; me1 - PMHx: 21:59 None; me1 - PSHx: 21:59 section; detached retina Rt eye; me1 - Immunization history:: Adult Immunizations up to date. - Infectious Disease History:: Denies. - Social history:: Smoking status: Patient denies any tobacco usage or history of. Screenin:07 [facility] ED Fall Risk Assessment (Adult) History of falling in the last 3 months, lg3 including since admission Yes- single mechanical fall (1 pt) Confusion or Disorientation No (0 pts) Intoxicated or Sedated No (0 pts) Impaired Gait No (0 pts) Mobility Assist Device Used No (0 pt) Altered Elimination No (0 pt) Score/Fall Risk Level 0 - 2 = Low Risk Oriented to surroundings, Maintained a safe environment, Educated pt \T\ family on fall prevention, incl call for assistance when getting out of bed, Assessed \T\ reinforced patient's understanding of fall precautions. Abuse screen: Denies threats or abuse. Denies injuries from another. Nutritional screening: No deficits noted. Tuberculosis screening: No symptoms or risk factors identified. Assessment: 22:07 General: Appears in no apparent distress. comfortable, Behavior is calm, cooperative. lg3 Pain: Complains of pain in right frontal area and right temporal area Pain does not radiate. Pain currently is 7 out of 10 on a pain scale. Neuro: No deficits noted. Ellis Agitation-Sedation Scale (RASS): 0 - Alert and Calm Level of Consciousness is awake, alert, obeys commands, Oriented to person, place, time, situation, Reports headache in right parietal area. Cardiovascular: No deficits noted. Denies chest pain, shortness of breath, Capillary refill < 3 seconds Clubbing of nail beds is absent JVD is absent Patient's skin is warm and dry. Respiratory: No deficits noted. Airway is patent Respiratory effort is even, unlabored, Respiratory pattern is regular, symmetrical. GI: No deficits noted. No signs and/or symptoms were reported involving the gastrointestinal system. : No signs and/or symptoms were reported regarding the genitourinary system. EENT: No deficits noted. No signs and/or symptoms were reported regarding the EENT system. Derm: No deficits noted. No signs and/or symptoms reported regarding the dermatologic system. Skin is intact, is healthy with good turgor, Skin is dry, Skin is normal, Skin temperature is warm. Musculoskeletal: No deficits noted. No signs and/or symptoms reported regarding the musculoskeletal system. Circulation, motion, and sensation intact. Range of motion: intact in all extremities. 23:31 Reassessment: Patient appears in no apparent distress at this time. No changes from lg3 previously documented assessment. Patient and/or family updated on plan of care and expected duration. Pain level reassessed. Patient is alert, oriented x 3, equal unlabored respirations, skin warm/dry/pink. Patient states feeling better. Patient states symptoms have improved. Vital Signs: 21:57 BP 138 / 85; Pulse 70; Resp 18; Temp 98.2; Pulse Ox 99% ; Weight 70.31 kg; Height 5 ft. me1 7 in. ; Pain 8/10; 23:31 BP 127 / 89; Pulse 64; Resp 17 S; Pulse Ox 99% on R/A; lg3 21:57 Body Mass Index 24.28 (70.31 kg, 170.18 cm) me1 21:57 Pain Scale: Adult me1 [place] Coma Score: 21:57 Eye Response: spontaneous(4). Motor Response: obeys commands(6). Verbal Response: me1 oriented(5). Total: 15. 01/27 01:58 Eye Response: spontaneous(4). Motor Response: obeys commands(6). Verbal Response: dr5 oriented(5). Total: 15. ED Course: 01/26 21:38 Patient arrived in ED. jj6 21:46 Yoel Moore FNP-C is [facility]. dr5 21:46 Marco Salazar MD is Attending Physician. dr5 21:57 Saundra Jimenez, RN is Primary Nurse. lg3 21:58 Triage completed. me1 21:59 Arm band placed on Patient placed in an exam room. me1 22:07 Patient has correct armband on for positive identification. Placed in gown. Bed in low lg3 position. Call light in reach. Side rails up X 1. Client placed on continuous cardiac and pulse oximetry monitoring. NIBP monitoring applied. Door closed. Noise minimized. Warm blanket given. Pillow given. Family accompanied patient. 22:22 CT Head Brain wo Cont In Process Unspecified. EDMS 23:32 No provider procedures requiring assistance completed. Patient did not have IV access lg3 during this emergency room visit. Administered Medications: 22:13 Drug: HYDROcodone-acetaminophen PO 5 mg-325 mg 2 tabs PO once Route: PO; lg3 23:31 Follow up: Response: No adverse reaction; Marked relief of symptoms lg3 22:13 Drug: Ibuprofen PO 800 mg PO once Route: PO; lg3 23:31 Follow up: Response: No adverse reaction; Marked relief of symptoms lg3 Medication: 23:32 VIS not applicable for this client. lg3 Outcome: 23:17 Discharge ordered by . dr5 23:32 Discharged to home ambulatory, with significant other, lg3 23:32 Condition: stable 23:32 Discharge instructions given to patient, Instructed on discharge instructions, follow up and referral plans. medication usage, Demonstrated understanding of instructions, follow-up care, medications, Prescriptions given X 1, 23:32 Patient left the ED. lg3 Signatures: Dispatcher [employer] EDMS Tahir Jimenezie, RN RN lg3 Miguelina Zabala jj6 Jennifer Weinstein RN RN me1 Teresa, Yoel, MUTUEL CLERK-C MUTUEL CLERK-Cdr5
--- NOTE | 2025-01-26 23:17 | EDPHYS ---
Physician Documentation [facility] Name: Poly Smith Age: 59 yrs Sex: Female : 1965 Arrival Date: 01/26/2025 Time: 21:36 Bed 13 Private MD: ED Physician Marco Salazar HPI: 01/27 01:58 This 59 yrs old Female presents to ER via Ambulatory with complaints of Head dr5 Injury-Adult. 01:58 The patient or guardian reports pain. The complaints affect the right sabianism. Onset: dr5 The symptoms/episode began/occurred yesterday. Patient is a 59-year-old female with no past medical history coming in with fall and headache to her right side of head that occurred yesterday at 9 AM. Patient reports that she slipped on water and fell on hard tile. Patient has been taking extra strength Tylenol which resolves the headache. Patient is concerned that headache has continued for 1 day. No loss of consciousness on impact. Patient denies dizziness, numbness or tingling. Historical: - Allergies: 01/26 21:59 No Known Allergies; me1 - Home Meds: 21:59 None [Active]; me1 - PMHx: 21:59 None; me1 - PSHx: 21:59 section; detached retina Rt eye; me1 - Immunization history:: Adult Immunizations up to date. - Infectious Disease History:: Denies. - Social history:: Smoking status: Patient denies any tobacco usage or history of. ROS: 01/27 01:58 Constitutional: as per hpi dr5 Exam: 01:58 Constitutional: This is a well developed, well nourished patient who is awake, alert, dr5 and in no acute distress. Head/Face: Normocephalic, atraumatic. Eyes: Pupils equal round and reactive to light, extra-ocular motions intact. Lids and lashes normal. Conjunctiva and sclera are non-icteric and not injected. Cornea within normal limits. Periorbital areas with no swelling, redness, or edema. Neck: Trachea midline, no thyromegaly or masses palpated, and no cervical lymphadenopathy. Supple, full range of motion without nuchal rigidity, or vertebral point tenderness. No Meningismus. Chest/axilla: Normal chest wall appearance and motion. Nontender with no deformity. No lesions are appreciated. Cardiovascular: Regular rate and rhythm with a normal S1 and S2. Normal PMI, no JVD. No pulse deficits. Respiratory: Lungs have equal breath sounds bilaterally, clear to auscultation. No rales, rhonchi or wheezes noted. No increased work of breathing, no retractions or nasal flaring. Abdomen/GI: Soft, non-tender, non-distended Skin: Warm, dry with normal turgor. Normal color with no rashes, no lesions, and no evidence of cellulitis. MS/ Extremity: Pulses equal, no cyanosis. Neurovascular intact. Full, normal range of motion. Neuro: Awake and alert, GCS 15, oriented to person, place, time, and situation. Cranial nerves II-XII grossly intact. Motor strength 5/5 in all extremities. Sensory grossly intact. Cerebellar exam normal. Normal gait. Vital Signs: 01/26 21:57 BP 138 / 85; Pulse 70; Resp 18; Temp 98.2; Pulse Ox 99% ; Weight 70.31 kg; Height 5 ft. me1 7 in. ; Pain 8/10; 23:31 BP 127 / 89; Pulse 64; Resp 17 S; Pulse Ox 99% on R/A; lg3 21:57 Body Mass Index 24.28 (70.31 kg, 170.18 cm) me1 21:57 Pain Scale: Adult me1 [place] Coma Score: 21:57 Eye Response: spontaneous(4). Motor Response: obeys commands(6). Verbal Response: me1 oriented(5). Total: 15. 01/27 01:58 Eye Response: spontaneous(4). Motor Response: obeys commands(6). Verbal Response: dr5 oriented(5). Total: 15. MDM: 01/26 21:47 Medical Screening Exam initiated dr5 01/27 01:58 Differential diagnosis: Contusion of Hematoma on Intracranial bleed-. Data reviewed: dr5 vital signs, nurses notes. I considered the following discharge prescriptions or medication management in the emergency department Medications were administered in the Emergency Department. See MAR. Care significantly affected by the following Social Determinants of Health: Poor access to healthcare and/or lack of insurance, Poor access to transportation, Problems related to employment. Counseling: I had a detailed discussion with the patient and/or guardian regarding the historical points, exam findings, and any diagnostic results supporting the discharge/admit diagnosis, the presence of at least one elevated blood pressure reading (>120/80) during this emergency department visit, radiology results, the need for outpatient follow up, for definitive care, a family practitioner, a neurologist, to return to the emergency department if symptoms worsen or persist or if there are any questions or concerns that arise at home. Medication response: [place] and ibuprofen. Response to treatment: the patient's symptoms have resolved after treatment, the patient's condition has returned to base line. ED course: Patient denies any headache at this time. CT result does not show any intracranial hemorrhage or mass. Recommended alternating Tylenol Motrin as needed for pain and follow-up primary care doctor or neurology as needed this next week. Strict ER precautions given. 01/26 21:59 Order name: CT Head Brain wo Cont; Complete Time: 22:46 dr5 Administered Medications: 01/26 22:13 Drug: HYDROcodone-acetaminophen PO 5 mg-325 mg 2 tabs PO once Route: PO; lg3 23:31 Follow up: Response: No adverse reaction; Marked relief of symptoms lg3 22:13 Drug: Ibuprofen PO 800 mg PO once Route: PO; lg3 23:31 Follow up: Response: No adverse reaction; Marked relief of symptoms lg3 Disposition Summary: 01/26/25 23:17 Discharge Ordered Notes: Location: Home dr5 Condition: Stable dr5 Diagnosis - Unspecified injury of head, initial encounter dr5 Followup: dr5 - With: Emergency Department - When: As needed - Reason: Worsening of condition Followup: dr5 - With: Private Physician - When: 1 - 2 days - Reason: Recheck today's complaints, Continuance of care, Re-evaluation by your physician Discharge Instructions: - Discharge Summary Sheet dr5 - Head Injury, Adult dr5 Forms: - Medication Reconciliation Form dr5 - Patient Portal Instructions dr5 - Leadership Thank You Letter dr5 Prescriptions: - Ibuprofen 800 mg Oral Tablet - take 1 tablet ORAL route every 12 hours As needed take with food; 20 tablet; dr5 Refills: 0, Product Selection Permitted Signatures: Dispatcher [employer] Saundra Sanchez RN RN lg3 Jennifer Weinstein RN RN me1 Yoel Moore, HEDGE FUND ACCOUNTANT-C HEDGE FUND ACCOUNTANT-Cdr5
== END 2025-01-26 23:32 | disposition home or self-care (01) ==
LOC: ER 21:36
DX: S09.90XA Unspecified injury of head, initial encounter (principal); R51.9 Headache, unspecified; W19.XXXA Unspecified fall, initial encounter
CPT/HCPCS: 70450; 99283